=== PATIENT | male | born 1985 | race American Indian/Alaskan Native ===

== ENCOUNTER 2021-10-08 13:09 | Emergency (ER) | payer SELFPAY ==
[2021-10-08 15:53] LABS: Hematocrit 50.3 % (35.5-45.6); Hemoglobin 16.6 gm/dl (11.8-15.2); Mean Corpuscular HGB Conc 33 % (32-34); Mean Corpuscular Volume 93 fl (84-94); Platelet Count 282 K/mm3 (140-440); Red Blood Count 5.41 M/mm3 (3.65-5.03); Red Cell Distribution Width 13.9 % (13.2-15.2)
[2021-10-08 16:12] LABS: Alanine Aminotransferase 23 units/L (7-56); Albumin 4.7 g/dL (3.9-5); BUN/Creatinine Ratio 11; Blood Urea Nitrogen 14 mg/dL (9-20); Calcium 9.2 mg/dL (8.4-10.2); Hemolysis Index 28
[2021-10-08 16:49] LABS: Band Neutrophils # (Manual) 0.1 K/mm3; Basophils % (Manual) 0 % (0.0-1.8); Eosinophils % (Manual) 0 % (0.0-4.3); Total Cells Counted 100
[2021-10-08 16:50] LABS: Bilirubin,Direct < 0.2 mg/dL (0-0.2); Platelet Estimate Consistent w Auto; RBC Morphology Normal; Toxic Granulation 1+
[2021-10-08 17:00] LABS: INR 0.88 (0.87-1.13)
[2021-10-08 17:01] LABS: Partial Thromboplastin Time 22.8 Sec. (24.2-36.6)
[2021-10-08 22:51] LABS: Bilirubin,Urine NEG (Negative); Blood,Urine NEG (Negative); Color,Urine Yellow (Yellow); Mucus,Urine 3+ /HPF; Protein,Urine <15 mg/dL mg/dL (Negative); RBC,Urine < 1.0 /HPF (0.0-6.0); WBC,Urine < 1.0 /HPF (0.0-6.0)
[2021-10-08 22:52] LABS: Amphetamine Screen,Urine PRESUMPTIVE NEGATIVE; Benzodiazepines Screen,Urine PRESUMPTIVE NEGATIVE; Cannabinoid Screen,Urine PRESUMPTIVE NEGATIVE; Cocaine Screen,Urine PRESUMPTIVE POSITIVE; Methadone Screen,Urine PRESUMPTIVE NEGATIVE; Opiate Screen,Urine PRESUMPTIVE NEGATIVE
[2021-10-09 00:08] VITALS: BP 140/87
== END 2021-10-09 00:08 | disposition home or self-care (01) ==
LOC: ED 13:09
DX: R10.32 Left lower quadrant pain (principal); B34.9 Viral infection, unspecified; E86.0 Dehydration; N17.9 Acute kidney failure, unspecified; Z79.899 Other long term (current) drug therapy
CPT/HCPCS: 36415; 71045; 71275; 74177; 80048; 80076; 80307; 81001; 82140; 83690; 83735; 83880; 84484; 85007; 85025; 85379; 85610; 85730; 87040; 93005; 93010; 96361; 96374; 96375; 99284; J1170; J2405; J7030; Q9967; 80320; Q0162; G0480